=== PATIENT | female | born 1990 | race Caucasian/White ===

== ENCOUNTER → 2021-05-13 | Outpatient (CLI) | payer MEDICAID, BC ==
--- NOTE | 2021-05-14 11:15 | ECHOF ---
Referral Reason:R07.89 Chest pressure, R07.9 Chest pain MEASUREMENTS -------- HEIGHT: 162.6 cm WEIGHT: 68.5 kg BP: 106/56 IVSd: 0.7 cm (0.6 - 1.1) LVIDd: 4.4 cm (3.9 - 5.3) LVPWd: 0.6 cm (0.6 - 1.1) EDV(Teich): 89 ml IVSs: 1.3 cm LVIDs: 2.7 cm LVPWs: 1.5 cm %IVS Thck: 86 % ESV(Teich): 28 ml EF(Teich): 69 % %FS: 38 % SV(Teich): 61 ml LA Diam: 2.9 cm (2.7 - 3.8) RVIDd: 2.6 cm (< 3.3) LALs A4C: 5.3 cm LAAs A4C: 17.9 cm LAESV A-L A4C: 51 ml LAESV MOD A4C: 50 ml LALs A2C: 5.4 cm LAAs A2C: 13.3 cm LAESV A-L A2C: 28 ml LAESV MOD A2C: 26 ml LAESV(A-L): 38 ml LAESV Index (A-L): 21.84 ml/m Ao Diam: 2.6 cm (2.0 - 3.7) AV Cusp: 2.0 cm (1.5 - 2.6) EPSS: 0.3 cm MV E Urban: 0.81 m/s MV DecT: 246 ms MV Dec [place]: 3.3 m/s MV A Urban: 0.69 m/s MV E/A Ratio: 1.17 MV PHT: 71 ms AV Vmax: 1.41 m/s AV maxP.99 mmHg TR Vmax: 2.05 m/s TR maxP.84 mmHg RAP: 5.00 mmHg RVSP: 21.84 mmHg MV EF SLOPE: 117.18 mm/s (70 - 150) MV EXCURSION: 15.88 mm (> 18.000) FINDINGS -------- Sinus rhythm. This was a technically good study. The left ventricular size is normal. Left ventricular wall thickness is normal. Overall left vent ricular systolic function is normal with, an EF between 60 - 65 %. The right ventricle is normal in size. Normal LA size by volume 22+/-6 ml/m2. The right atrium is normal in size. Interatrial and interventricular septum intact. The aortic valve is trileaflet and appears structurally normal. The mitral valve is normal. Mild tricuspid regurgitation present. Right ventricular systolic pressure is normal at < 35 mmHg. Trace/mild (physiologic) pulmonic regurgitation. The aortic root size is normal. Normal inferior vena cava with normal inspiratory collapse consistent with estimated right atrial pre ssure of 5 mmHg. There is no pericardial effusion. CONCLUSIONS -------- 1. The left ventricular size is normal. 2. Left ventricular wall thickness is normal. 3. Overall left ventricular systolic function is normal with, an EF between 60 - 65 %. 4. Mild tricuspid regurgitation present. 5. Trace/mild (physiologic) pulmonic regurgitation. 6. There is no pericardial effusion. COMPUTER TRAINER: Erin Araya RDCS
== END | disposition home or self-care (01) ==
LOC: RADECHMAIN 16:15
PROVIDERS: ATTEND Obstetrics & Gynecology Obstetrics
DX: I37.1 Nonrheumatic pulmonary valve insufficiency (principal); I07.1 Rheumatic tricuspid insufficiency
CPT/HCPCS: 93306

== ENCOUNTER 2021-09-26 06:11 | Inpatient (IN) | payer MEDICAID ==
[2021-09-26] MEDS ORDERED: CARBOPROST TROMETHAMINE 250 MCG/ML 1 ML AMP IM PRN (06:19)
[2021-09-26] MEDS ORDERED: LIDOCAINE 1% (PF) 10 MG/ML (30 ML SDV) SQ PRN (06:19)
[2021-09-26] MEDS ORDERED: TERBUTALINE 1 MG/ML VIAL SQ PRN (06:19)
[2021-09-26] MEDS ORDERED: OXYTOCIN 10 UNIT/ML 1 ML VIAL IM PRN (06:19)
[2021-09-26] MEDS ORDERED: METHYLERGONOVINE 0.2 MG/ML 1 ML AMP IM PRN (06:19)
[2021-09-26] MEDS ORDERED: OXYTOCIN 30 UNITS/500 ML NS 30 UNIT in SALINE 1 500ML.BAG IV SCH ×2 (06:30→12:45)
[2021-09-26] MEDS: LACTATED RINGERS 1,000 ML IV SCH (06:35)
[2021-09-26 06:50] LABS: Basophils # (A) 0.1 k/uL (0-0.2); Basophils % (A) 1 %; Eosinophils # (A) 0.1 k/uL (0-0.7); Eosinophils % (A) 1 %; HCT 39.2 % (34.0-46.0); HGB 13.7 gm/dL (11.4-16.0); Lymphocytes # (A) 2.2 k/uL (1.0-4.8); Lymphocytes % (A) 21 %; MCH 33.1 pg (25.0-35.0); MCHC 35.1 g/dL (31.0-37.0); MCV 94.5 fL (80.0-100.0); Mean Platelet Volume 9.5; Monocytes # (A) 0.7 k/uL (0-1.0); Monocytes % (A) 7 %; Neutrophils # (A) 7.2 k/uL (1.3-7.7); Neutrophils % (A) 69 %; Platelet Count 224 k/uL (150-450); RBC 4.14 m/uL (3.80-5.40); RDW 12.6 % (11.5-15.5); WBC 10.4 k/uL (3.8-10.6)
--- NOTE | 2021-09-26 09:09 | P.HPOB ---
History of Present Illness H&P Date: 09/26/21 Chief Complaint: IUP at 39 and one sevenths weeks, labor This is a 31-year-old 5 para 1031 at 39 and one sevenths weeks, estimated due date of 10/02. Patient presents for induction of labor but notes she was up through the night quincy and uncomfortable. Patient has been receiving routine care which has been essentially uncomplicated. Patient has a known anterior placenta, and MTHFr mutation. Patient has been recently complaining of decreased movement with reassuring testing. Patient denies loss of fluid. On bloodwork this patient has a blood type of O+, rubella nonimmune, B surface antigen negative, HIV negative, RPR is nonreactive group beta strep cultures are negative. Review of Systems Constitutional: Denies chills, Denies fatigue, Denies fever Ears, nose, mouth and throat: Denies headache Respiratory: Denies dyspnea Gastrointestinal: Denies nausea, Denies vomiting Genitourinary: Reports Past Medical History Additional Past Medical History / Comment(s): MTHFR History of Any Multi-Drug Resistant Organisms: None Reported Past Surgical History: No Surgical Hx Reported Past Anesthesia/Blood Transfusion Reactions: No Reported Reaction Past Psychological History: No Psychological Hx Reported Smoking Status: Never smoker Past Alcohol Use History: None Reported Past Drug Use History: None Reported - Past Family History Father Family Medical History: Cancer Mother Family Medical History: Thyroid Disorder Medications and Allergies Home Medications Medication Instructions Recorded Confirmed Type Aspirin [Vaz[place]] 81 mg PO DAILY 09/26/21 09/26/21 History Folic Acid 1 mg PO DAILY 09/26/21 09/26/21 History Pnv No.95/Ferrous Fum/Folic AC 1 each PO DAILY 09/26/21 09/26/21 History [ Multivitamin Tablet] Allergies Allergy/AdvReac Type Severity Reaction Status Date / Time No Known Allergies Allergy Verified 09/26/21 06:19 Exam Osteopathic Statement: *. No significant issues noted on an osteopathic structural exam other than those noted in the History and Physical/Consult. 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 Since breathing is noted to be nonlabored, heart has a regular rate and rhythm, abdomen is gravid and appropriate for gestational age, on exam she is 4/80/-2 station vertex presentation. Heart tones are noted to be category 1 and she is cont racting every 2 minutes. Results Result Diagrams: 09/26/21 06:35 Assessment and Plan (1) Term Current Visit: Yes Status: Acute Code(s): Z34.90 - ENCNTR FOR SUPRVSN OF NORMAL , UNSP, UNSP TRIMESTER SNOMED Code(s): 32014315 (2) Active labor at term Current Visit: Yes Status: Acute Code(s): ONS9994 - SNOMED Code(s): 47939826 Plan: 31-year-old 031 at 39 and one sevenths weeks presents for induction of labor. Patient had noted painful contractions through the night 90 believe she is in latent phase of labor. Patient denies loss of fluid. Patient is admitted to labor and delivery and Pitocin augmentation of labor is begun. Patient wishe s to labor without an epidural. Pain control throughout labor is discussed and patient will consider her options should she change her mind. Anticipate spontaneous vaginal delivery later this afternoon.
[2021-09-26] MEDS ORDERED: BUTORPHANOL 1 MG/ML 1 ML VIAL IV PRN (09:10)
[2021-09-26] MEDS ORDERED: ACETAMINOPHEN TAB 325 MG TAB PO PRN (12:40)
[2021-09-26] MEDS ORDERED: diphenhydrAMINE 25 MG CAP PO PRN (12:40)
[2021-09-26] MEDS ORDERED: LANOLIN CREAM 5 GM TUBE TOPICAL PRN (12:40)
[2021-09-26] MEDS ORDERED: HYDROCORTISONE 2.5% RECTAL CREAM 30 GM TUBE RECTAL PRN (12:40)
[2021-09-26] MEDS ORDERED: diphenhydrAMINE 50 MG CAP PO PRN (12:40)
[2021-09-26] MEDS ORDERED: MEASLES-MUMPS-RUBELLA VACC/PF 12,500 UNIT/0.5 ML VIAL SQ ONE (12:40)
[2021-09-26] MEDS ORDERED: BENZOCAINE/MENTHOL SPRAY 1 GM/SPRAY AEROSOL TOPICAL PRN (12:40)
[2021-09-26] MEDS ORDERED: diphenhydrAMINE 50 MG/ML 1 ML VIAL IVP PRN ×2 (12:40)
[2021-09-26] MEDS ORDERED: SIMETHICONE 80 MG CHEWABLE PO PRN (12:40)
[2021-09-26] MEDS ORDERED: ZOLPIDEM 5 MG TAB PO PRN (12:40)
--- NOTE | 2021-09-26 12:43 | P.PROBDLV ---
Vaginal Delivery Note - . Vaginal Delivery Note: This 31-year-old at 39 and one sevenths weeks that presented to labor and delivery for induction of labor. Patient was quincy through the evening and I do believe she was in latent phase of labor. Patient was admitted to labor and delivery and Pitocin augmentation of labor was begun. Patient was noted to be 4 cm on admission. Patient declined epidural. Patient pressed quickly to 9 cm amniotomy was performed clear fluid was obtained. Patient progr essed to complete and with excellent maternal effort push the infant down to a crown. Patient was then placed in a modified lithotomy position and with excellent maternal effort the head along with the anterior/posterior shoulder were delivered followed by the body. The infant was then placed on the maternal abdomen. After two-minute delay the umbilical cord was doubly clamped and cut. Cord blood was then taken. A spontaneous cry was noted at . The placenta was delivered spontaneously intact with a three-vessel cord being noted. Patient did sustain a first-degree vaginal sidewall laceration this was repaired in usual fashion with 3-0 repeat after instillation of lidocaine. The uterus is noted be firm and below the umbilicus after delivery. Estimated blood loss 100 mL. Patient and infant tolerated delivery well and are resting comfortably. All counts were noted be correct 2 at the end of the delivery.
[2021-09-26] MEDS: IBUPROFEN 600 MG TAB PO SCH ×2 (13:08→21:12)
[2021-09-26] MEDS ORDERED: SENNOSIDES-DOCUSATE SODIUM 1 EACH TAB PO SCH (20:00)
[2021-09-27] MEDS: LACTATED RINGERS 1,000 ML IV SCH (00:21)
[2021-09-27] MEDS: IBUPROFEN 600 MG TAB PO SCH (04:12)
[2021-09-27 07:37] VITALS: BP 111/71; PULSE 65; RESP 18; TEMP 97.7
[2021-09-27] MEDS ORDERED: PRENATAL VIT-IRON-FOLIC ACID 1 EACH CAP PO SCH (09:00)
--- NOTE | 2021-09-27 09:01 | P.DS ---
Providers Date of admission: 09/26/21 06:11 Expected date of discharge: 09/27/21 Attending physician: Nanette Cates Primary care physician: Stated None - Discharge Diagnosis(es) (1) Term Current Visit: Yes Status: Acute (2) Active labor at term Current Visit: Yes Status: Acute (3) Status post vaginal delivery Current Visit: Yes Status: Acute (4) First-degree perineal laceration during delivery Current Visit: Yes Status: Acute Hospital Course: This is a 31-year-old 5 para 2031 that presented to labor and delivery at 39 and one sevenths weeks for induction of labor. Patient had been quincy throughout the evening and I do believe she was in the latent phase of labor. Patient was admitted to labor and delivery and Pitocin augmentation of labor was begun. Patient progressed quickly through labor eventually becoming complete with an urge to push. Patient had a normal spontaneous vaginal delivery of a viable male infant at 1219, weight of 8 pounds 4.3 ounces, Apgars of 9 and 9 at one and 5 minutes respectively. Patient did sustain a first-degree vaginal sidewall laceration during delivery this was repaired in u sual fashion with 3-0 Rapide. Patient's post course has been uneventful. On this day #1 she is ambulating and voiding without difficulty. She is tolerating a regular diet without nausea or vomiting. She states her pain is well-controlled. She denies concerns and would like discharge home at 24 hours. Patient Condition at Discharge: Good Plan - Discharge Summary New Discharge Prescriptions: No Action Folic Acid 1 mg PO DAILY Aspirin [Vazalore] 81 mg PO DAILY Pnv No.95/Ferrous Fum/Folic AC [ Multivitamin Tablet] 1 each PO DAILY Discharge Medication List Aspirin [V[place]] 81 mg PO DAILY 09/26/21 [History] Folic Acid 1 mg PO DAILY 09/26/21 [History] Pnv No.95/Ferrous Fum/Folic AC [ Multivitamin Tablet] 1 each PO DAILY 09/26/21 [History] Follow up Appointment(s)/Referral(s): Nanette Cates DO [Doctor of Osteopathic Medicine] - 4 Weeks Patient Instructions/Handouts: Vaginal Delivery (DC), Vaginal Delivery (GEN) Discharge Disposition: HOME SELF-CARE
== END 2021-09-27 14:45 | disposition home or self-care (01) | DRG 806 ==
LOC: 4FBP 06:11
PROVIDERS: ADMIT Obstetrics & Gynecology Obstetrics; ATTEND Obstetrics & Gynecology Obstetrics
PROC: 10E0XZZ Delivery of Products of Conception, External Approach (ICD-10-PCS; principal; 2021-09-26)
PROC: 0HQ9XZZ Repair Perineum Skin, External Approach (ICD-10-PCS; 2021-09-26)
PROC: 3E033VJ Introduction of Other Hormone into Peripheral Vein, Percutaneous Approach (ICD-10-PCS; 2021-09-26)
PROC: 4A0HXCZ Measurement of Products of Conception, Cardiac Rate, External Approach (ICD-10-PCS; 2021-09-26)
DX: O70.0 First degree perineal laceration during delivery (principal); E72.12 Methylenetetrahydrofolate reductase deficiency; Z37.0 Single live birth; O99.284 Endocrine, nutritional and metabolic diseases complicating childbirth; Z3A.39 39 weeks gestation of pregnancy
CPT/HCPCS: 85025; 86850; 86900; 86901; 90707

== ENCOUNTER → 2023-12-11 | Outpatient (CLI) | payer MEDICAID ==
[2023-12-11 15:42] LABS: ALT 12 U/L (8-44); AST 16 U/L (13-35); Albumin 4.7 g/dL (3.8-4.9); Albumin/Globulin Ratio 1.88 Ratio (1.60-3.17); Alkaline Phosphatase 59 U/L (41-126); Blood Urea Nitrogen 10.8 mg/dL (9.0-27.0); Calcium 9.7 mg/dL (8.7-10.3); Carbon Dioxide 26.9 mmol/L (21.6-31.8); Chloride 102 mmol/L (96-109); Chol/HDL Ratio 2.96 Ratio; Globulin 2.5 g/dL (1.6-3.3); Glucose 77 mg/dL (70-110); Potassium 4.4 mmol/L (3.5-5.5); Sodium 138 mmol/L (135-145); Total Bilirubin 0.3 mg/dL (0.3-1.2); Total Protein 7.2 g/dL (6.2-8.2)
== END | disposition home or self-care (01) ==
LOC: LABWHC1 11:27
PROVIDERS: ATTEND Family Medicine
DX: I26.99 Other pulmonary embolism without acute cor pulmonale (principal); R53.83 Other fatigue
CPT/HCPCS: 36415; 80053; 80061; 84443

== ENCOUNTER → 2024-01-30 | Outpatient (CLI) | payer BC ==
--- NOTE | 2024-01-30 09:22 | US ---
EXAMINATION TYPE: US abdomen complete DATE OF EXAM: 01/30/2024 COMPARISON: NONE CLINICAL INDICATION: Female, 33 years old with history of R10.2 PELVIC AND PERINEAL DANYA,R10.9 ABDOMIN AL PAIN; LLQ pain TECHNIQUE: Multiple sonographic images of the abdomen are obtained. FINDINGS: EXAM MEASUREMENTS: Liver Length: 15.3 cm Gallbladder Wall: 0.1 cm CBD: 0.3 cm Spleen: 9.4 cm Right Kidney: 9.6 x 4.2 x 5.1 cm Left Kidney: 9.4 x 5.8 x 3.9 cm TUB RIDER NOTES: Pancreas: wnl Liver: wnl Gallbladder: No stones seen Evidence for sonographic Mcghee's sign: No CBD: wnl Spleen: wnl Right Kidney: No hydronephrosis or masses seen Left Kidney: No hydronephrosis or masses seen Upper IVC: wnl Abd Aorta: wnl The liver is homogenous. The intrahepatic portion of the IVC and proximal abdominal aorta are within normal limits. There is no evidence of cholelithiasis. Common bile duct is unremarkable. The visu alized portions of the pancreas are homogenous. The spleen is unremarkable. Kidneys are symmetric a nd free of hydronephrosis. No renal lesions are seen. IMPRESSION: No evidence for acute process.
== END | disposition home or self-care (01) ==
LOC: RADUSWWP 08:04
PROVIDERS: ATTEND Family Medicine
DX: R10.9 Unspecified abdominal pain (principal); R10.2 Pelvic and perineal pain; R10.32 Left lower quadrant pain
CPT/HCPCS: 76700

== ENCOUNTER → 2024-02-20 | Outpatient (CLI) | payer BC ==
--- NOTE | 2024-02-21 14:09 | CT ---
EXAMINATION TYPE: CT abdomen pelvis w con CT DLP: 885 mGycm, Automated exposure control for dose reduction was used. DATE OF EXAM: 02/20/2024 10:31 AM COMPARISON: Abnormal ultrasound CLINICAL INDICATION:Female, 33 years old with history of R10.30 lower abdominal pain; Lower abdominal pain, LT side abdominal pain. Pt recently had US that showed issues with a ovarian cyst and inflamma tion of the fallopian tubes. TECHNIQUE: Axial CT abdomen pelvis w con;Sagittal and coronal reformats were created on a separate w orkstation. Contrast used:100 mL of Isovue 300 with IV Contrast, (none if empty) Oral contrast used: with Oral Contrast (none if empty) FINDINGS: LOWER CHEST: Unremarkable ABDOMEN LIVER: Unremarkable GALLBLADDER AND BILE DUCTS: Unremarkable. PANCREAS: Unremarkable. SPLEEN: Unremarkable. ADRENAL GLANDS: Unremarkable. KIDNEYS AND URETERS: No evidence of hydronephrosis or renal calculus. The ureters are unremarkable. PELVIS BLADDER: Unremarkable REPRODUCTIVE: Uterus is bulky and retroverted. Otherwise unremarkable ABDOMEN & PELVIS STOMACH AND BOWEL: No evidence of bowel obstruction. PERITONEUM/RETROPERITONEUM: No evidence of pneumoperitoneum or free fluid. VASCULATURE: No evidence of aortic aneurysm. MUSCULOSKELETAL: No acute osseous abnormalities LYMPH NODES: No gross evidence for lymphadenopathy. SOFT TISSUE/ABDOMINAL WALL: Unremarkable IMPRESSION: 1. No CT findings are identified that would further explain the abnormal ultrasound findings.
== END | disposition home or self-care (01) ==
LOC: RADCTMAIN 08:00
PROVIDERS: ATTEND Family Medicine
DX: R10.30 Lower abdominal pain, unspecified (principal); N70.91 Salpingitis, unspecified
CPT/HCPCS: 74177; Q9967